=== PATIENT | male | born 1990 | race Caucasian/White ===

== ENCOUNTER 2020-08-31 02:46 | Emergency (ER) | payer SELFPAY ==
[2020-08-31] MEDS ORDERED: CHLORHEXIDINE GLUCONATE 4 % 15 ML UD TOP ONE (02:54)
[2020-08-31] MEDS ORDERED: LIDOCAINE 1% 10 ML VIAL INJ ONE (02:56)
[2020-08-31 03:09] VITALS: TEMP 97.9
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
[2020-08-31] MEDS ORDERED: TETANUS,DIPHTHERIA,PERTUSSIS 1 EA SYG IM ONE ×2 (03:26→03:28)
[2020-08-31 03:41] VITALS: BP 156/115; O2SAT 97
== END 2020-08-31 03:40 | disposition home or self-care (01) ==
LOC: ER 02:46
DX: S61.411A Laceration without foreign body of right hand, initial encounter (principal); F17.210 Nicotine dependence, cigarettes, uncomplicated; W26.0XXA Contact with knife, initial encounter; Y92.9 Unspecified place or not applicable; Y93.89 Activity, other specified